=== PATIENT | female | born 1965 | race Caucasian/White ===

== ENCOUNTER 2021-01-22 16:17 | Inpatient (IN) | payer BC ==
[2021-01-22] MEDS ORDERED: PIPERACILLIN/TAZOB 4.5 GM 4.5 GM in DEXTROSE 5%-WATER 100 ML IVPB ONE (17:50)
[2021-01-22] MEDS ORDERED: VANCOMYCIN 1 GM in D5W (PRE-DOCKED) 1,000 MG/250 ML IVPB ONE (17:51)
[2021-01-22] MEDS ORDERED: VANCOMYCIN 1 GRAM (PRE-DOCKED) 1,000 MG/250 ML BAG IVPB ONE (18:32)
[2021-01-22] MEDS ORDERED: PIPERACILLIN/TAZOB 4.5 GM 4.5 GM/100 ML BAG IVPB ONE (18:32)
[2021-01-22 19:18] LABS: BASO % 1.5 % (0-2.0); EOS % 4.6 % (0-4.5); HEMATOCRIT 37.9 % (32.4-45.2); HEMOGLOBIN 12.8 GM/dL (10.7-15.3); LYMPH % 24.5 % (8-40); MCH 28.8 pg (25.7-33.7); MCHC 33.9 g/dl (32.0-36.0); MEAN CELL VOLUME 85.1 fl (80-96); MEAN PLT VOLUME 7.3 fl (7.5-11.1); MONO % 10.7 % (3.8-10.2); NEUT % 58.7 % (42.8-82.8); PLATELET COUNT 323 10^3/uL (134-434); RBC 4.45 M/mm3 (3.60-5.2); RDW 13.9 % (11.6-15.6); WHITE BLOOD COUNT 6.8 K/mm3 (4.0-10.0)
[2021-01-22 19:35] LABS: CHLORIDE 105 mmol/L (98-107); SODIUM 139 mmol/L (136-145)
[2021-01-22 19:37] LABS: CALCIUM 9.3 mg/dL (8.5-10.1)
[2021-01-22 19:38] LABS: ALBUMIN 4.1 g/dl (3.4-5.0); ANION GAP 8 MMOL/L (8-16); BLOOD UREA NITROGEN 15.2 mg/dL (7-18); CO2 27 mmol/L (21-32); GLUCOSE,RANDOM 69 mg/dL (74-106)
[2021-01-22 19:41] LABS: SGOT/AST 30 U/L (15-37); SGPT/ALT 62 U/L (13-61)
[2021-01-22 19:42] LABS: BILIRUBIN,TOTAL 0.3 mg/dL (0.2-1); TOT PROT 7.7 g/dl (6.4-8.2)
[2021-01-22 19:44] LABS: ALK PHOS 168 U/L (45-117)
[2021-01-22] MEDS ORDERED: ACETAMINOPHEN 1000 MG/100 ML VIAL (NON FORMULARY) IVPB ONE (21:41)
[2021-01-22] MEDS ORDERED: ACETAMINOPHEN INJECTION 100 ML IVPB ONE (22:25)
[2021-01-22] MEDS ORDERED: diphenhydrAMINE HCL 25 MG CAPSULE (FP) PO ONE ×2 (23:40→23:58)
[2021-01-23] MEDS ORDERED: ACETAMINOPHEN 1000 MG/100 ML VIAL (NON FORMULARY) IVPB PRN (00:10)
[2021-01-23] MEDS ORDERED: CYCLOBENZAPRINE HCL 5 MG TABLET PO PRN (00:11)
[2021-01-23] MEDS ORDERED: MORPHINE SULFATE 2 MG/ML VIAL ONE (01:26)
[2021-01-23] MEDS: MORPHINE SULFATE 2 MG/ML VIAL IVPUSH PRN ×2 (01:36→09:58)
[2021-01-23] MEDS ORDERED: PIPERACILLIN/TAZOBACTAM 3.375 GM VIAL IVPB ONE ×3 (02:02→17:27)
[2021-01-23] MEDS ORDERED: DEXTROSE 5%-WATER - 50 ML IVPB ONE ×3 (02:02→17:28)
[2021-01-23] MEDS: CLINDAMYCIN 600MG PREMIX IVPB 600 MG/50 ML BAG IVPB SCH ×3 (02:09→17:51)
[2021-01-23] MEDS: PIPERACILLIN/TAZOB 3.375 GM 3.375 GM in DEXTROSE 5%-WATER - 50 ML IVPB SCH ×3 (02:15→17:52)
[2021-01-23 02:47] VITALS: BMI 20.5
[2021-01-23] MEDS: QUEtiapine FUMARATE 50 MG TABLET PO SCH (03:39)
[2021-01-23 08:52] LABS: EOS % 7.2 % (0-4.5); HEMOGLOBIN 11.7 GM/dL (10.7-15.3); LYMPH % 23.4 % (8-40); MCH 29.5 pg (25.7-33.7); MCHC 34.4 g/dl (32.0-36.0); MEAN CELL VOLUME 85.8 fl (80-96); MEAN PLT VOLUME 7.3 fl (7.5-11.1); NEUT % 57.4 % (42.8-82.8); PLATELET COUNT 290 10^3/uL (134-434); PROTHROMBIN TIME (PATIENT) 12.3 SEC (9.7-13.0); RBC 3.96 M/mm3 (3.60-5.2); RDW 13.9 % (11.6-15.6); WHITE BLOOD COUNT 6.1 K/mm3 (4.0-10.0)
[2021-01-23 09:16] LABS: ALBUMIN 3.4 g/dl (3.4-5.0); BLOOD UREA NITROGEN 18.8 mg/dL (7-18); CALCIUM 8.9 mg/dL (8.5-10.1)
[2021-01-23 09:17] LABS: MAGNESIUM 2.2 mg/dL (1.8-2.4)
[2021-01-23 09:19] LABS: BILIRUBIN,TOTAL 0.4 mg/dL (0.2-1); TOT PROT 6.6 g/dl (6.4-8.2)
[2021-01-23 09:20] LABS: CREATININE 1.2 mg/dL (0.55-1.3); PHOSPHOROUS 4.5 mg/dL (2.5-4.9)
[2021-01-23] MEDS: DEXTROSE 5%-0.45% SALINE 1,000 ML IV SCH (10:12)
[2021-01-23] MEDS ORDERED: PT OWN MED DRAWER 7, Y5N ONE ×2 (10:32→18:59)
[2021-01-23] MEDS ORDERED: GABAPENTIN 300 MG CAPSULE PO SCH (13:15)
[2021-01-23] MEDS ORDERED: ELETRIPTAN HYDROBROMIDE 40 MG TABLET PO PRN (13:15)
[2021-01-23] MEDS ORDERED: ZOLPIDEM TARTRATE 5 MG TABLET PO PRN (14:11)
[2021-01-23] MEDS: VENLAFAXINE HCL 75 MG E.R. CAPSULES PO SCH (14:32)
[2021-01-23] MEDS ORDERED: THROMBIN (BOVINE) 20,000 UNIT VIAL TP ONE (16:24)
[2021-01-23] MEDS ORDERED: VANCOMYCIN 1,000 MG VIAL (RESTRICTED TO ID ONLY) ONE (16:24)
[2021-01-23] MEDS ORDERED: GENTAMICIN SO4 80 MG/2 ML VIAL ONE ×2 (16:24→19:42)
[2021-01-23 17:45] LABS: EPI CELLS 5 /uL (0-25.1); HYALINE CASTS 1 /uL (0-3.1); PH,URINE 6.5 (5.0-8.0); URINE APPEARANCE CLEAR; URINE BACTERIA 1 /uL (0-1359); URINE BILIRUBIN NEGATIVE (NEGATIVE); URINE COLOR YELLOW; URINE GLUCOSE (UA) NEGATIVE (NEGATIVE); URINE KETONE NEGATIVE (NEGATIVE); URINE LEUK ESTERASE TRACE (NEGATIVE); URINE NITRITE NEGATIVE (NEGATIVE); URINE PROTEIN NEGATIVE (NEGATIVE); URINE RBC 3 /uL (0-23.9); URINE UROBILINOGEN 0.2 mg/dL (0.2-1.0); URINE WBC 3 /uL (0-25.8)
[2021-01-23] MEDS ORDERED: MIDAZOLAM HCL 2 MG/2 ML SINGLE DOSE VIAL ONE ×2 (19:06)
[2021-01-23] MEDS ORDERED: PROPOFOL 20 ML ONE ×2 (19:06)
[2021-01-23] MEDS ORDERED: HYDROmorphone HCl 2 MG/ML VIAL ONE (19:06)
[2021-01-23] MEDS ORDERED: ROCURONIUM BROMIDE 50 MG/5 ML SYRINGE ONE ×2 (19:07)
[2021-01-23] MEDS ORDERED: diphenhydrAMINE HCL 25 MG CAPSULE (FP) PO PRN (19:34)
[2021-01-23] MEDS ORDERED: SUCCINYLCHOLINE CHLORIDE 200 MG/10 ML SYRINGE ONE (19:34)
[2021-01-23] MEDS ORDERED: ONDANSETRON 4 MG/2 ML VIAL IVPUSH PRN (19:34)
[2021-01-23] MEDS ORDERED: HEPARIN NA (PORCINE) 5,000 UNITS/ML 1ML VIAL SQ SCH (19:45)
[2021-01-23] MEDS ORDERED: ceFAZolin SODIUM 1 GM VIAL IVPB ONE (19:45)
[2021-01-23] MEDS ORDERED: LACTATED RINGERS SOLUTION 1,000 ML/1,000 ML INFUS.BAG IV SCH (19:45)
[2021-01-23] MEDS ORDERED: LIDOCAINE 1%/EPI 1:100000 (20 ML MULTI DOSE VIAL) IJ ONE (20:09)
[2021-01-23] MEDS ORDERED: BACITRACIN 50,000 UNITS VIAL TP ONE (20:20)
[2021-01-23] MEDS ORDERED: GENTAMICIN SO4 80 MG/2 ML VIAL IVPB ONE (20:20)
[2021-01-23] MEDS ORDERED: NEOSTIGMINE METHYLSULFATE 0.5 MG/1 ML - 10 ML MDV ONE (20:55)
[2021-01-23] MEDS ORDERED: LACTATED RINGERS SOLUTION 1,000 ML IV SCH (21:30)
[2021-01-23] MEDS ORDERED: PATIENT'S OWN MEDICATION (NON-FORMULARY) (Eszopiclone [Lunesta] 3 MG Tablet) PO SCH (22:00)
[2021-01-23] MEDS: morphine SULFATE 4 MG/ML VIAL IVPUSH PRN (23:04)
[2021-01-24] MEDS: HEPARIN NA (PORCINE) 5,000 UNITS/ML 1ML VIAL SQ SCH ×4 (00:19→21:30)
[2021-01-24] MEDS: GABAPENTIN 300 MG CAPSULE PO SCH (00:19)
[2021-01-24] MEDS: DOCUSATE SODIUM 100 MG CAPSULE (FP) PO SCH ×4 (00:19→21:30)
[2021-01-24] MEDS: QUEtiapine FUMARATE 50 MG TABLET PO SCH ×2 (00:20→21:30)
[2021-01-24] MEDS: CLINDAMYCIN 600MG PREMIX IVPB 600 MG/50 ML BAG IVPB SCH ×3 (01:54→18:24)
[2021-01-24] MEDS ORDERED: CEFAZOLIN 1 GM/D5W 1 GM/50 ML BAG IVPB SCH (02:00)
[2021-01-24] MEDS ORDERED: PIPERACILLIN/TAZOBACTAM 3.375 GM VIAL IVPB ONE ×3 (02:15→16:55)
[2021-01-24] MEDS ORDERED: DEXTROSE 5%-WATER - 50 ML IVPB ONE ×3 (02:15→16:55)
[2021-01-24] MEDS ORDERED: ACETAMINOPHEN 1000 MG/100 ML VIAL (NON FORMULARY) IVPB ONE (02:26)
[2021-01-24] MEDS: PIPERACILLIN/TAZOB 3.375 GM 3.375 GM in DEXTROSE 5%-WATER - 50 ML IVPB SCH ×3 (02:36→17:47)
[2021-01-24 08:14] LABS: HEMOGLOBIN 11.1 GM/dL (10.7-15.3); MCH 29.7 pg (25.7-33.7); MCHC 34.8 g/dl (32.0-36.0); MEAN CELL VOLUME 85.3 fl (80-96); MEAN PLT VOLUME 7.5 fl (7.5-11.1); PLATELET COUNT 275 10^3/uL (134-434); RBC 3.76 M/mm3 (3.60-5.2); RDW 13.9 % (11.6-15.6); WHITE BLOOD COUNT 6.6 K/mm3 (4.0-10.0)
[2021-01-24 08:27] LABS: BLOOD UREA NITROGEN 13.4 mg/dL (7-18); CALCIUM 8.9 mg/dL (8.5-10.1)
[2021-01-24] MEDS: DEXTROSE 5%-0.45% SALINE 1,000 ML IV SCH (08:30)
[2021-01-24] MEDS ORDERED: PT OWN MED DRAWER 7, Y5N ONE (09:39)
[2021-01-24] MEDS: FOLIC ACID 1 MG TABLET (FP) PO SCH (09:43)
[2021-01-24] MEDS: VENLAFAXINE HCL 75 MG E.R. CAPSULES PO SCH (09:43)
[2021-01-24] MEDS: morphine SULFATE 4 MG/ML VIAL IVPUSH PRN ×4 (09:43→22:57)
[2021-01-24] MEDS: FERROUS SO4 325 MG TABLET (FP) PO SCH (09:43)
[2021-01-25] MEDS: GABAPENTIN 300 MG CAPSULE PO SCH (00:09)
[2021-01-25] MEDS: CLINDAMYCIN 600MG PREMIX IVPB 600 MG/50 ML BAG IVPB SCH ×3 (02:10→18:03)
[2021-01-25] MEDS ORDERED: PIPERACILLIN/TAZOBACTAM 3.375 GM VIAL IVPB ONE ×4 (02:52→17:02)
[2021-01-25] MEDS ORDERED: DEXTROSE 5%-WATER - 50 ML IVPB ONE ×4 (02:52→17:02)
[2021-01-25] MEDS: PIPERACILLIN/TAZOB 3.375 GM 3.375 GM in DEXTROSE 5%-WATER - 50 ML IVPB SCH ×3 (03:00→18:03)
[2021-01-25] MEDS: morphine SULFATE 4 MG/ML VIAL IVPUSH PRN ×2 (03:10→15:55)
[2021-01-25] MEDS: HEPARIN NA (PORCINE) 5,000 UNITS/ML 1ML VIAL SQ SCH ×2 (06:30→14:57)
[2021-01-25] MEDS: DOCUSATE SODIUM 100 MG CAPSULE (FP) PO SCH ×2 (06:30→15:56)
[2021-01-25 08:18] LABS: HEMATOCRIT 29.2 % (32.4-45.2); HEMOGLOBIN 10.2 GM/dL (10.7-15.3); MCH 29.8 pg (25.7-33.7); MCHC 34.9 g/dl (32.0-36.0); MEAN CELL VOLUME 85.3 fl (80-96); MEAN PLT VOLUME 7.9 fl (7.5-11.1); PLATELET COUNT 251 10^3/uL (134-434); RBC 3.43 M/mm3 (3.60-5.2); RDW 13.7 % (11.6-15.6); WHITE BLOOD COUNT 6.4 K/mm3 (4.0-10.0)
[2021-01-25 08:33] LABS: CALCIUM 8.6 mg/dL (8.5-10.1)
[2021-01-25 08:34] LABS: BLOOD UREA NITROGEN 12.2 mg/dL (7-18); MAGNESIUM 2.4 mg/dL (1.8-2.4)
[2021-01-25] MEDS: FERROUS SO4 325 MG TABLET (FP) PO SCH (08:36)
[2021-01-25 08:37] LABS: PHOSPHOROUS 3.2 mg/dL (2.5-4.9)
[2021-01-25] MEDS: VENLAFAXINE HCL 75 MG E.R. CAPSULES PO SCH (10:18)
[2021-01-25] MEDS: FOLIC ACID 1 MG TABLET (FP) PO SCH (10:18)
[2021-01-25] MEDS ORDERED: ACETAMINOPHEN 1000 MG/100 ML VIAL (NON FORMULARY) IVPB PRN (13:40)
[2021-01-25 17:54] VITALS: BP 98/64; PULSE 63; TEMP 98.3
== END 2021-01-25 19:28 | disposition home or self-care (01) | DRG 857 ==
LOC: JER 16:17 → JERBED 18:26 → J8W 01-23 01:45
PROVIDERS: ADMIT Internal Medicine; ATTEND Internal Medicine
PROC: 0JX70ZZ Transfer Back Subcutaneous Tissue and Fascia, Open Approach (ICD-10-PCS; 2021-01-23)
PROC: 3E10X8Z Irrigation of Skin and Mucous Membranes using Irrigating Substance (ICD-10-PCS; 2021-01-23)
PROC: 0HB6XZZ Excision of Back Skin, External Approach (ICD-10-PCS; 2021-01-23)
PROC: 0J970ZX Drainage of Back Subcutaneous Tissue and Fascia, Open Approach, Diagnostic (ICD-10-PCS; principal; 2021-01-23 19:00)
PROC: 02HV33Z Insertion of Infusion Device into Superior Vena Cava, Percutaneous Approach (ICD-10-PCS; 2021-01-25)
PROC: B518ZZA Fluoroscopy of Superior Vena Cava, Guidance (ICD-10-PCS; 2021-01-25)
DX: T81.42XA Infection following a procedure, deep incisional surgical site, initial encounter (principal); T81.32XA Disruption of internal operation (surgical) wound, not elsewhere classified, initial encounter; M79.7 Fibromyalgia; F32.9 Major depressive disorder, single episode, unspecified; M41.9 Scoliosis, unspecified; G47.00 Insomnia, unspecified; G62.9 Polyneuropathy, unspecified; B96.5 Pseudomonas (aeruginosa) (mallei) (pseudomallei) as the cause of diseases classified elsewhere; Y83.8 Other surgical procedures as the cause of abnormal reaction of the patient, or of later complication, without mention of misadventure at the time of the procedure
CPT/HCPCS: 36415; 36569; 72126-TC; 72129-TC; 80048; 80053; 81003; 83735; 84100; 85025; 85027; 85610; 85651; 86140; 87040; 87070; 87075; 87186; 87205; 93005; 93010; 94760; 97116-GP; 97161-GP; 99285-25; C9803; J0131; J1644; Q9967; U0003; U0005

== ENCOUNTER 2021-01-31 18:59 | Inpatient (IN) | payer BC ==
[2021-01-31 22:05] LABS: HEMOGLOBIN 12.9 GM/dL (10.7-15.3); MCH 29.2 pg (25.7-33.7); MEAN PLT VOLUME 7.5 fl (7.5-11.1); PLATELET COUNT 342 10^3/uL (134-434); RBC 4.41 M/mm3 (3.60-5.2); RDW 14.2 % (11.6-15.6); WHITE BLOOD COUNT 6.5 K/mm3 (4.0-10.0)
[2021-01-31 22:15] LABS: INR 0.98 (0.83-1.09); PROTHROMBIN TIME (PATIENT) 11.9 SEC (9.7-13.0)
[2021-01-31 22:19] LABS: CHLORIDE 105 mmol/L (98-107); SODIUM 138 mmol/L (136-145)
[2021-01-31 22:20] LABS: CALCIUM 9.5 mg/dL (8.5-10.1)
[2021-01-31 22:21] LABS: ANION GAP 8 MMOL/L (8-16); BLOOD UREA NITROGEN 14.6 mg/dL (7-18); CO2 25 mmol/L (21-32); GLUCOSE,RANDOM 77 mg/dL (74-106); MAGNESIUM 2.5 mg/dL (1.8-2.4)
[2021-01-31 22:25] LABS: CREATININE 0.9 mg/dL (0.55-1.3); PHOSPHOROUS 4.3 mg/dL (2.5-4.9); SGOT/AST 39 U/L (15-37); SGPT/ALT 39 U/L (13-61)
[2021-01-31 22:26] LABS: BILIRUBIN,TOTAL 0.5 mg/dL (0.2-1); TOT PROT 8.1 g/dl (6.4-8.2)
[2021-01-31 22:27] LABS: ALK PHOS 127 U/L (45-117)
[2021-02-01] MEDS ORDERED: PIPERACILLIN/TAZOB 3.375 GM 3.375 GM in DEXTROSE 5%-WATER - 50 ML IVPB ONE (00:13)
[2021-02-01] MEDS ORDERED: CLINDAMYCIN 600MG PREMIX IVPB 600 MG/50 ML BAG IVPB ONE ×2 (00:14→00:29)
[2021-02-01] MEDS ORDERED: PIPERACILLIN/TAZOB 3.375 GM 3.375 GM/50 ML BAG IVPB ONE ×2 (00:29→09:32)
[2021-02-01] MEDS ORDERED: SODIUM CHLORIDE 1,000 ML IV SCH (06:15)
[2021-02-01] MEDS ORDERED: LINEZOLID 600 MG PREMIX BAG 600 MG/300 ML BAG IVPB SCH ×2 (08:00→12:45)
[2021-02-01 08:39] LABS: HEMATOCRIT 35.4 % (32.4-45.2); HEMOGLOBIN 12.4 GM/dL (10.7-15.3); MCH 29.3 pg (25.7-33.7); MEAN CELL VOLUME 83.7 fl (80-96); PLATELET COUNT 303 10^3/uL (134-434); RBC 4.22 M/mm3 (3.60-5.2); RDW 13.6 % (11.6-15.6); WHITE BLOOD COUNT 6.3 K/mm3 (4.0-10.0)
[2021-02-01 09:05] LABS: ALBUMIN 3.7 g/dl (3.4-5.0); BLOOD UREA NITROGEN 15.2 mg/dL (7-18); CALCIUM 9.3 mg/dL (8.5-10.1); MAGNESIUM 2.5 mg/dL (1.8-2.4)
[2021-02-01 09:07] LABS: CREATININE 0.9 mg/dL (0.55-1.3)
[2021-02-01 09:08] LABS: PHOSPHOROUS 4.5 mg/dL (2.5-4.9)
[2021-02-01 09:09] LABS: BILIRUBIN,TOTAL 0.7 mg/dL (0.2-1); TOT PROT 7.3 g/dl (6.4-8.2)
[2021-02-01 10:05] LABS: PH,URINE 6.5 (5.0-8.0); URINE APPEARANCE Clear; URINE BILIRUBIN Negative (NEGATIVE); URINE COLOR Yellow; URINE GLUCOSE (UA) Negative (NEGATIVE); URINE KETONE Negative (NEGATIVE); URINE LEUK ESTERASE Negative (NEGATIVE); URINE NITRITE Negative (NEGATIVE); URINE PROTEIN Negative (NEGATIVE); URINE UROBILINOGEN 0.2 mg/dL (0.2-1.0)
[2021-02-01] MEDS: PIPERACILLIN/TAZOB 3.375 GM 3.375 GM/50 ML BAG IVPB SCH ×2 (12:04→17:36)
[2021-02-01] MEDS ORDERED: ENOXAPARIN NA (PORCINE) 40 MG/0.4 ML DISP.SYRIN SQ ONE (13:03)
[2021-02-01] MEDS: ENOXAPARIN NA (PORCINE) 40 MG/0.4 ML DISP.SYRIN SQ SCH (13:07)
[2021-02-01] MEDS: PIPERACILLIN/TAZOB 3.375 GM 3.375 GM in DEXTROSE 5%-WATER - 50 ML IVPB SCH (17:35)
[2021-02-01] MEDS ORDERED: DEXTROSE 5%-WATER 100 ML IVPB ONE (17:39)
[2021-02-01] MEDS ORDERED: MEROPENEM 1 GM VIAL (RESTRICTED TO ID) IVPB ONE (17:39)
[2021-02-01] MEDS: MEROPENEM 1 GM in DEXTROSE 5%-WATER 100 ML IVPB SCH (18:07)
[2021-02-01] MEDS: clonazePAM 0.5 MG TABLET PO PRN (20:23)
[2021-02-02] MEDS: MEROPENEM 1 GM in DEXTROSE 5%-WATER 100 ML IVPB SCH ×3 (01:51→18:23)
[2021-02-02] MEDS ORDERED: ACETAMINOPHEN 325 MG TABLET (FP) PO ONE (05:16)
[2021-02-02] MEDS ORDERED: ACETAMINOPHEN/CAFFEINE/BUTALBITAL 1 TAB PO ONE (05:37)
[2021-02-02] MEDS ORDERED: MORPHINE SULFATE 2 MG/ML VIAL IVPUSH ONE (06:43)
[2021-02-02 10:05] LABS: BASO % 1.5 % (0-2.0); EOS % 11.7 % (0-4.5); HEMATOCRIT 34.3 % (32.4-45.2); HEMOGLOBIN 11.8 GM/dL (10.7-15.3); LYMPH % 16.7 % (8-40); MCHC 34.4 g/dl (32.0-36.0); MEAN CELL VOLUME 84.2 fl (80-96); MEAN PLT VOLUME 7.3 fl (7.5-11.1); NEUT % 57.1 % (42.8-82.8); PLATELET COUNT 288 10^3/uL (134-434); RBC 4.07 M/mm3 (3.60-5.2); RDW 13.7 % (11.6-15.6); WHITE BLOOD COUNT 5.5 K/mm3 (4.0-10.0)
[2021-02-02 10:12] LABS: ALBUMIN 3.3 g/dl (3.4-5.0)
[2021-02-02 10:15] LABS: BILIRUBIN,TOTAL 1.9 mg/dL (0.2-1)
[2021-02-02 10:16] LABS: TOT PROT 7.4 g/dl (6.4-8.2)
[2021-02-02] MEDS ORDERED: MEROPENEM 1 GM VIAL (RESTRICTED TO ID) IVPB ONE ×2 (10:49→18:11)
[2021-02-02] MEDS ORDERED: DEXTROSE 5%-WATER 100 ML IVPB ONE ×2 (10:50→18:11)
[2021-02-02] MEDS: ENOXAPARIN NA (PORCINE) 40 MG/0.4 ML DISP.SYRIN SQ SCH (10:57)
[2021-02-02] MEDS ORDERED: ACETAMINOPHEN/CAFFEINE/BUTALBITAL 1 TAB PO PRN (12:27)
[2021-02-02 12:33] LABS: CALCIUM 8.8 mg/dL (8.5-10.1)
[2021-02-02 12:43] LABS: BLOOD UREA NITROGEN 12.9 mg/dL (7-18)
[2021-02-02] MEDS: ACETAMINOPHEN/CAFFEINE/BUTALBITAL 1 TAB PO PRN ×2 (12:51→20:50)
[2021-02-02] MEDS ORDERED: ACETAMINOPHEN 1000 MG/100 ML VIAL IVPB ONE (17:41)
[2021-02-02] MEDS: clonazePAM 0.5 MG TABLET PO PRN (20:52)
[2021-02-03] MEDS: MEROPENEM 1 GM in DEXTROSE 5%-WATER 100 ML IVPB SCH ×3 (01:53→18:06)
[2021-02-03] MEDS ORDERED: MEROPENEM 1 GM VIAL (RESTRICTED TO ID) IVPB ONE ×2 (08:47→18:00)
[2021-02-03] MEDS ORDERED: DEXTROSE 5%-WATER 100 ML IVPB ONE ×2 (08:47→18:00)
[2021-02-03] MEDS: ACETAMINOPHEN/CAFFEINE/BUTALBITAL 1 TAB PO PRN (08:55)
[2021-02-03] MEDS: ENOXAPARIN NA (PORCINE) 40 MG/0.4 ML DISP.SYRIN SQ SCH (09:01)
[2021-02-03 09:26] LABS: BASO % 2.1 % (0-2.0); EOS % 13.8 % (0-4.5); HEMATOCRIT 34.4 % (32.4-45.2); LYMPH % 21.8 % (8-40); MCH 29.2 pg (25.7-33.7); MCHC 34.9 g/dl (32.0-36.0); MEAN CELL VOLUME 83.9 fl (80-96); MEAN PLT VOLUME 7.5 fl (7.5-11.1); MONO % 12.2 % (3.8-10.2); NEUT % 50.1 % (42.8-82.8); PLATELET COUNT 282 10^3/uL (134-434); RDW 13.7 % (11.6-15.6); WHITE BLOOD COUNT 5.8 K/mm3 (4.0-10.0)
[2021-02-03 09:43] LABS: CALCIUM 9.2 mg/dL (8.5-10.1)
[2021-02-03 09:44] LABS: ALBUMIN 3.6 g/dl (3.4-5.0)
[2021-02-03 09:47] LABS: BILIRUBIN,TOTAL 0.5 mg/dL (0.2-1); TOT PROT 7.1 g/dl (6.4-8.2)
[2021-02-03] MEDS: MORPHINE SULFATE 2 MG/ML VIAL IVPUSH PRN ×2 (18:04→22:25)
[2021-02-04] MEDS ORDERED: MEROPENEM 1 GM VIAL (RESTRICTED TO ID) IVPB ONE ×3 (01:32→19:24)
[2021-02-04] MEDS ORDERED: DEXTROSE 5%-WATER 100 ML IVPB ONE ×3 (01:33→19:24)
[2021-02-04] MEDS: MEROPENEM 1 GM in DEXTROSE 5%-WATER 100 ML IVPB SCH ×3 (01:41→19:41)
[2021-02-04] MEDS: MORPHINE SULFATE 2 MG/ML VIAL IVPUSH PRN ×2 (02:18→06:15)
[2021-02-04] MEDS: ENOXAPARIN NA (PORCINE) 40 MG/0.4 ML DISP.SYRIN SQ SCH (09:40)
[2021-02-04 12:56] VITALS: BMI 20.1
[2021-02-04] MEDS: ATORVASTATIN CA 40 MG TABLET (FP) PO SCH ×2 (21:02→21:07)
[2021-02-05] MEDS ORDERED: MEROPENEM 1 GM VIAL (RESTRICTED TO ID) IVPB ONE ×2 (01:29→09:14)
[2021-02-05] MEDS ORDERED: DEXTROSE 5%-WATER 100 ML IVPB ONE ×2 (01:29→09:14)
[2021-02-05] MEDS: MEROPENEM 1 GM in DEXTROSE 5%-WATER 100 ML IVPB SCH ×2 (02:47→09:26)
[2021-02-05] MEDS: ENOXAPARIN NA (PORCINE) 40 MG/0.4 ML DISP.SYRIN SQ SCH (09:26)
[2021-02-05 11:28] LABS: EOS % 16.5 % (0-4.5); HEMOGLOBIN 12.5 GM/dL (10.7-15.3); LYMPH % 16.1 % (8-40); MCH 29.1 pg (25.7-33.7); MCHC 34.6 g/dl (32.0-36.0); MEAN PLT VOLUME 7.2 fl (7.5-11.1); MONO % 9.9 % (3.8-10.2); NEUT % 56.5 % (42.8-82.8); PLATELET COUNT 277 10^3/uL (134-434); RBC 4.28 M/mm3 (3.60-5.2); RDW 13.6 % (11.6-15.6); WHITE BLOOD COUNT 4.8 K/mm3 (4.0-10.0)
[2021-02-05 12:02] LABS: ALBUMIN 3.7 g/dl (3.4-5.0); BILIRUBIN,TOTAL 0.3 mg/dL (0.2-1); TOT PROT 7.4 g/dl (6.4-8.2)
[2021-02-05 12:07] LABS: CREATININE 0.8 mg/dL (0.55-1.3); PHOSPHOROUS 2.4 mg/dL (2.5-4.9)
[2021-02-05 12:12] LABS: CALCIUM 9.3 mg/dL (8.5-10.1)
[2021-02-05 12:13] LABS: MAGNESIUM 2.5 mg/dL (1.8-2.4)
[2021-02-05 13:33] VITALS: BP 108/70; PULSE 88; TEMP 98.8
== END 2021-02-05 14:58 | disposition home or self-care (01) | DRG 312 ==
LOC: JER 18:59 → JERBED 02-01 00:40 → J5S 02-01 16:48
PROVIDERS: ADMIT Internal Medicine; ATTEND Internal Medicine
DX: I95.1 Orthostatic hypotension (principal); G06.1 Intraspinal abscess and granuloma; T81.40XA Infection following a procedure, unspecified, initial encounter; E86.0 Dehydration; M79.7 Fibromyalgia; F41.8 Other specified anxiety disorders; R51.9 Headache, unspecified; R19.7 Diarrhea, unspecified; E78.5 Hyperlipidemia, unspecified; Y83.8 Other surgical procedures as the cause of abnormal reaction of the patient, or of later complication, without mention of misadventure at the time of the procedure
CPT/HCPCS: 36415; 70450-TC; 71045-TC-FY; 72125-TC; 72126-TC; 80048; 80053; 80061; 81003; 82550; 83605; 83735; 84100; 84436; 84443; 84484; 85025; 85027; 85610; 87040; 87086; 87324; 87449; 93005; 93010; 93306-TC; 93880-TC; 99285-25; C9803; G0378; J0131; Q9967; U0003; U0005

== ENCOUNTER 2022-03-31 05:38 | Inpatient (IN) | payer BC ==
[2022-03-31 06:00] VITALS: BMI 25.9
[2022-03-31 06:33] LABS: EOS % 5.2 % (0-4.5); HEMATOCRIT 32.8 % (32.4-45.2); HEMOGLOBIN 10.9 GM/dL (10.7-15.3); MCH 28.1 pg (25.7-33.7); MCHC 33.4 g/dl (32.0-36.0); MEAN PLT VOLUME 6.4 fl (7.5-11.1); MONO % 13.5 % (3.8-10.2); NEUT % 56.3 % (42.8-82.8); PLATELET COUNT 511 10^3/uL (134-434); RDW 14.5 % (11.6-15.6); WHITE BLOOD COUNT 5.6 K/mm3 (4.0-10.0)
[2022-03-31 06:49] LABS: INR 1.04 (0.83-1.09)
[2022-03-31 06:52] LABS: ACTIVATED PTT 34.4 SECONDS (25.2-36.5)
[2022-03-31] MEDS ORDERED: morphine CARPU-JECT 2 MG/1 ML DISP.SYRIN IVPUSH ONE (06:54)
[2022-03-31 07:00] LABS: BLOOD UREA NITROGEN 11.8 mg/dL (7-18); CALCIUM 8.4 mg/dL (8.5-10.1)
[2022-03-31 07:03] LABS: CREATININE 0.7 mg/dL (0.55-1.3)
[2022-03-31 07:05] LABS: BILIRUBIN,TOTAL 0.3 mg/dL (0.2-1); TOT PROT 6.7 g/dl (6.4-8.2)
[2022-03-31] MEDS ORDERED: THROMBIN (BOVINE) 5,000 UNIT VIAL TP ONE ×2 (09:55→12:10)
[2022-03-31] MEDS ORDERED: GENTAMICIN SO4 80 MG/2 ML VIAL ONE (09:55)
[2022-03-31] MEDS ORDERED: BUPIVACAINE LIPOSOME/PF (EXPAREL) 266 MG/20 ML VIAL ONE (09:56)
[2022-03-31] MEDS ORDERED: BUPIVACAINE HCL/PF 0.5% (5MG/ML) 10 ML VIAL ONE (09:56)
[2022-03-31] MEDS ORDERED: PROPOFOL 20 ML ONE ×3 (10:20→14:38)
[2022-03-31] MEDS ORDERED: MIDAZOLAM HCL 2 MG/2 ML SINGLE DOSE VIAL ONE (10:20)
[2022-03-31] MEDS ORDERED: ROCURONIUM BROMIDE 50 MG/5 ML SYRINGE ONE ×2 (10:25→11:42)
[2022-03-31] MEDS ORDERED: ceFAZolin SODIUM 1 GM VIAL IVPB ONE (10:26)
[2022-03-31] MEDS ORDERED: KETAMINE HCL 500 MG/10 ML VIAL ONE (10:26)
[2022-03-31] MEDS ORDERED: VANCOMYCIN 1 GM in D5W (PRE-DOCKED) 1,000 MG/250 ML IVPB ONE ×2 (10:26→13:17)
[2022-03-31] MEDS ORDERED: ACETAMINOPHEN INJECTION 100 ML IVPB ONE (10:47)
[2022-03-31] MEDS ORDERED: TRANEXAMIC ACID 1000 MG/10 ML VIAL ONE (11:19)
[2022-03-31] MEDS ORDERED: BETAMET ACET/BETAMET NA PH 30 MG/5 ML VIAL ONE (11:19)
[2022-03-31] MEDS ORDERED: DEXAMETHASONE SOD PHOSPHATE 4 MG/1 ML VIAL ONE ×2 (11:27)
[2022-03-31] MEDS ORDERED: HYDROmorphone HCl 2 MG/ML VIAL ONE (11:36)
[2022-03-31] MEDS ORDERED: ONDANSETRON 4 MG/2 ML VIAL ONE (11:57)
[2022-03-31] MEDS ORDERED: HYDROGEN PEROXIDE 473 ML PO ONE (12:30)
[2022-03-31] MEDS ORDERED: GENTAMICIN SO4 80 MG/2 ML VIAL IVPB ONE (12:30)
[2022-03-31] MEDS ORDERED: GLYCOPYRROLATE 0.2 MG/1 ML VIAL ONE (14:51)
[2022-03-31] MEDS ORDERED: NEOSTIGMINE METHYLSULFATE 0.5 MG/ML - 10 ML MDV ONE (14:51)
[2022-03-31] MEDS ORDERED: ONDANSETRON 4 MG/2 ML VIAL IVPUSH PRN ×2 (15:33→15:56)
[2022-03-31] MEDS ORDERED: diphenhydrAMINE HCL 25 MG CAPSULE (FP) PO PRN (15:33)
[2022-03-31] MEDS ORDERED: HYDROmorphone *PCA* 10MG/50ML DISP.SYRIN ONE (16:43)
[2022-03-31] MEDS: LACTATED RINGERS SOLUTION 1,000 ML/1,000 ML INFUS.BAG IV SCH (16:50)
[2022-03-31] MEDS: HYDROmorphone *PCA* 10MG/50ML DISP.SYRIN PCA SCH (16:50)
[2022-03-31] MEDS: CEFAZOLIN 1 GM in DEXTROSE 5%-WATER - 50 ML IVPB SCH (20:41)
[2022-03-31] MEDS: ACETAMINOPHEN 1000 MG/100 ML BAG IVPB SCH (20:42)
[2022-03-31] MEDS: HEPARIN NA (PORCINE) 5,000 UNITS/ML 1ML VIAL SQ SCH (21:54)
[2022-03-31] MEDS: DOCUSATE SODIUM 100 MG CAPSULE (FP) PO SCH (21:55)
[2022-04-01] MEDS: ACETAMINOPHEN 1000 MG/100 ML BAG IVPB SCH ×3 (03:00→15:25)
[2022-04-01] MEDS: CEFAZOLIN 1 GM in DEXTROSE 5%-WATER - 50 ML IVPB SCH ×3 (04:16→17:44)
[2022-04-01] MEDS: DOCUSATE SODIUM 100 MG CAPSULE (FP) PO SCH ×3 (05:12→21:38)
[2022-04-01] MEDS: HEPARIN NA (PORCINE) 5,000 UNITS/ML 1ML VIAL SQ SCH ×3 (05:12→21:39)
[2022-04-01] MEDS ORDERED: diazePAM 5 MG TABLET PO PRN (08:05)
[2022-04-01 08:30] LABS: BASO % 0.7 % (0-2.0); EOS % 0.3 % (0-4.5); HEMATOCRIT 26.8 % (32.4-45.2); LYMPH % 14.1 % (8-40); MCH 28.9 pg (25.7-33.7); MCHC 33.8 g/dl (32.0-36.0); MEAN CELL VOLUME 85.6 fl (80-96); MONO % 14.4 % (3.8-10.2); NEUT % 70.5 % (42.8-82.8); PLATELET COUNT 434 10^3/uL (134-434); RBC 3.13 M/mm3 (3.60-5.2); RDW 14.7 % (11.6-15.6); WHITE BLOOD COUNT 7.5 K/mm3 (4.0-10.0)
[2022-04-01 08:58] LABS: CALCIUM 8.3 mg/dL (8.5-10.1)
[2022-04-01 08:59] LABS: BLOOD UREA NITROGEN 14.5 mg/dL (7-18)
[2022-04-01 09:02] LABS: ALBUMIN 2.8 g/dl (3.4-5.0); PHOSPHOROUS 3.4 mg/dL (2.5-4.9)
[2022-04-01 09:03] LABS: BILIRUBIN,TOTAL 0.3 mg/dL (0.2-1)
[2022-04-01 09:07] LABS: MAGNESIUM 2.2 mg/dL (1.8-2.4)
[2022-04-01 09:10] LABS: CREATININE 0.8 mg/dL (0.55-1.3)
[2022-04-01] MEDS: FOLIC ACID 1 MG TABLET (FP) PO SCH (10:43)
[2022-04-01] MEDS: FERROUS SO4 325 MG TABLET (FP) PO SCH (10:43)
[2022-04-01] MEDS ORDERED: ELETRIPTAN HYDROBROMIDE 40 MG TABLET PO PRN ×2 (12:10→13:59)
[2022-04-01] MEDS ORDERED: VENLAFAXINE HCL 150 MG E.R. CAPSULE PO SCH (12:15)
[2022-04-01] MEDS: VENLAFAXINE HCL 75 MG E.R. CAPSULES PO SCH (12:37)
[2022-04-01] MEDS: HYDROmorphone *PCA* 10MG/50ML DISP.SYRIN PCA SCH (12:43)
[2022-04-01] MEDS ORDERED: PATIENT'S OWN MEDICATION (NON-FORMULARY) (Clonazepam [Klonopin] 1 MG Tablet) PO SCH (14:00)
[2022-04-01] MEDS: PANTOPRAZOLE 40 MG TABLET PO SCH (15:25)
[2022-04-01] MEDS: GABAPENTIN 300 MG CAPSULE PO SCH ×2 (15:25→21:38)
[2022-04-01] MEDS: LACTATED RINGERS SOLUTION 1,000 ML/1,000 ML INFUS.BAG IV SCH (15:27)
[2022-04-01] MEDS ORDERED: PATIENT'S OWN MEDICATION (NON-FORMULARY) (Eszopiclone [Lunesta] 3 MG Tablet) PO SCH (22:00)
[2022-04-01] MEDS ORDERED: ACETAMINOPHEN 500 MG TABLET (FP) PO PRN (22:00)
[2022-04-02] MEDS: CEFAZOLIN 1 GM in DEXTROSE 5%-WATER - 50 ML IVPB SCH ×3 (01:17→17:50)
[2022-04-02] MEDS: DOCUSATE SODIUM 100 MG CAPSULE (FP) PO SCH ×3 (06:21→21:39)
[2022-04-02] MEDS: HEPARIN NA (PORCINE) 5,000 UNITS/ML 1ML VIAL SQ SCH ×3 (06:21→21:40)
[2022-04-02 08:24] LABS: BASO % 1.2 % (0-2.0); HEMATOCRIT 24.5 % (32.4-45.2); HEMOGLOBIN 8.2 GM/dL (10.7-15.3); LYMPH % 10.6 % (8-40); MCH 28.4 pg (25.7-33.7); MCHC 33.4 g/dl (32.0-36.0); MEAN CELL VOLUME 85.3 fl (80-96); MEAN PLT VOLUME 7.4 fl (7.5-11.1); MONO % 13.5 % (3.8-10.2); NEUT % 69.7 % (42.8-82.8); PLATELET COUNT 364 10^3/uL (134-434); RBC 2.88 M/mm3 (3.60-5.2); RDW 14.7 % (11.6-15.6); WHITE BLOOD COUNT 7.2 K/mm3 (4.0-10.0)
[2022-04-02 09:07] LABS: ALBUMIN 2.3 g/dl (3.4-5.0); BLOOD UREA NITROGEN 10.6 mg/dL (7-18); CALCIUM 8.1 mg/dL (8.5-10.1); CREATININE 0.6 mg/dL (0.55-1.3)
[2022-04-02 09:09] LABS: BILIRUBIN,TOTAL 0.2 mg/dL (0.2-1); TOT PROT 5.2 g/dl (6.4-8.2)
[2022-04-02 09:10] LABS: MAGNESIUM 1.9 mg/dL (1.8-2.4); PHOSPHOROUS 2.5 mg/dL (2.5-4.9)
[2022-04-02] MEDS: GABAPENTIN 300 MG CAPSULE PO SCH ×2 (10:16→21:40)
[2022-04-02] MEDS: PANTOPRAZOLE 40 MG TABLET PO SCH (10:16)
[2022-04-02] MEDS: VENLAFAXINE HCL 75 MG E.R. CAPSULES PO SCH (10:16)
[2022-04-02] MEDS: FOLIC ACID 1 MG TABLET (FP) PO SCH ×2 (10:16→10:30)
[2022-04-02] MEDS: FERROUS SO4 325 MG TABLET (FP) PO SCH ×2 (10:16→10:30)
[2022-04-02] MEDS ORDERED: SIMETHICONE 80 MG TAB.CHEW (FP) PO PRN (10:39)
[2022-04-02] MEDS: POLYETHYLENE GLYCOL (HEALTHYLAX) 3350 17 GM PACKET PO SCH (11:11)
[2022-04-02] MEDS: oxyCODONE HCL 5 MG TABLET PO PRN ×5 (11:11→21:41)
[2022-04-03] MEDS: CEFAZOLIN 1 GM in DEXTROSE 5%-WATER - 50 ML IVPB SCH ×2 (02:29→10:45)
[2022-04-03] MEDS: oxyCODONE HCL 5 MG TABLET PO PRN ×3 (04:42→23:02)
[2022-04-03] MEDS: DOCUSATE SODIUM 100 MG CAPSULE (FP) PO SCH ×3 (06:24→23:16)
[2022-04-03] MEDS: HEPARIN NA (PORCINE) 5,000 UNITS/ML 1ML VIAL SQ SCH ×3 (06:24→23:17)
[2022-04-03 08:08] LABS: BASO % 0.9 % (0-2.0); EOS % 5.8 % (0-4.5); HEMATOCRIT 27.4 % (32.4-45.2); HEMOGLOBIN 9.1 GM/dL (10.7-15.3); LYMPH % 13.8 % (8-40); MCH 28.4 pg (25.7-33.7); MCHC 33.3 g/dl (32.0-36.0); MEAN CELL VOLUME 85.3 fl (80-96); MEAN PLT VOLUME 7.5 fl (7.5-11.1); MONO % 12.1 % (3.8-10.2); NEUT % 67.4 % (42.8-82.8); PLATELET COUNT 414 10^3/uL (134-434); RBC 3.21 M/mm3 (3.60-5.2); RDW 14.6 % (11.6-15.6); WHITE BLOOD COUNT 6.1 K/mm3 (4.0-10.0)
[2022-04-03 08:41] LABS: ALBUMIN 2.4 g/dl (3.4-5.0); CALCIUM 8.3 mg/dL (8.5-10.1)
[2022-04-03 08:42] LABS: BLOOD UREA NITROGEN 6.7 mg/dL (7-18); MAGNESIUM 2.1 mg/dL (1.8-2.4)
[2022-04-03 08:44] LABS: CREATININE 0.6 mg/dL (0.55-1.3); PHOSPHOROUS 3.1 mg/dL (2.5-4.9)
[2022-04-03 08:45] LABS: BILIRUBIN,TOTAL 0.2 mg/dL (0.2-1); TOT PROT 5.8 g/dl (6.4-8.2)
[2022-04-03] MEDS: VENLAFAXINE HCL 75 MG E.R. CAPSULES PO SCH (10:43)
[2022-04-03] MEDS: FOLIC ACID 1 MG TABLET (FP) PO SCH (10:43)
[2022-04-03] MEDS: FERROUS SO4 325 MG TABLET (FP) PO SCH (10:43)
[2022-04-03] MEDS: GABAPENTIN 300 MG CAPSULE PO SCH ×2 (10:44→23:16)
[2022-04-03] MEDS: POLYETHYLENE GLYCOL (HEALTHYLAX) 3350 17 GM PACKET PO SCH (10:44)
[2022-04-03] MEDS: PANTOPRAZOLE 40 MG TABLET PO SCH (10:44)
[2022-04-03] MEDS ORDERED: GENTAMICIN SO4 80 MG/2 ML VIAL ONE (12:18)
[2022-04-03] MEDS ORDERED: THROMBIN (BOVINE) 5,000 UNIT VIAL TP ONE ×2 (12:19→13:51)
[2022-04-03] MEDS ORDERED: MIDAZOLAM HCL 2 MG/2 ML SINGLE DOSE VIAL ONE (12:33)
[2022-04-03] MEDS ORDERED: SUCCINYLCHOLINE CHLORIDE 200 MG/10 ML SYRINGE ONE (12:33)
[2022-04-03] MEDS ORDERED: PROPOFOL 40 ML ONE (12:33)
[2022-04-03] MEDS ORDERED: ROCURONIUM BROMIDE 50 MG/5 ML SYRINGE ONE (12:33)
[2022-04-03] MEDS ORDERED: VANCOMYCIN 1 GM in NS (PRE-DOCKED) 1,000 MG/250 ML IVPB ONE (13:30)
[2022-04-03] MEDS ORDERED: ceFAZolin SODIUM 1 GM VIAL IVPB ONE (13:33)
[2022-04-03] MEDS ORDERED: KETAMINE HCL 500 MG/10 ML VIAL ONE (13:34)
[2022-04-03] MEDS ORDERED: ONDANSETRON 4 MG/2 ML VIAL ONE (13:36)
[2022-04-03] MEDS ORDERED: ceFAZolin SODIUM 1 GM VIAL ONE ×2 (13:36)
[2022-04-03] MEDS ORDERED: BUPIVACAINE HCL/PF 0.5% (5MG/ML) 10 ML VIAL ONE (13:50)
[2022-04-03] MEDS ORDERED: GENTAMICIN SO4 80 MG/2 ML VIAL IVPB ONE (13:51)
[2022-04-03] MEDS ORDERED: HYDROGEN PEROXIDE 473 ML PO ONE (13:54)
[2022-04-03] MEDS ORDERED: BUPIVACAINE HCL/PF 0.5% (5MG/ML) 10 ML VIAL IJ ONE ×2 (13:55→14:30)
[2022-04-03] MEDS ORDERED: BUPIVACAINE LIPOSOME/PF (EXPAREL) 266 MG/20 ML VIAL NR ONE ×2 (13:55→14:30)
[2022-04-03] MEDS ORDERED: NEOSTIGMINE METHYLSULFATE 0.5 MG/ML - 10 ML MDV ONE (14:06)
[2022-04-03] MEDS ORDERED: ONDANSETRON 4 MG/2 ML VIAL IVPUSH PRN (15:33)
[2022-04-03] MEDS ORDERED: LACTATED RINGERS SOLUTION 1,000 ML IV SCH (15:45)
[2022-04-03] MEDS ORDERED: SIMETHICONE 80 MG TAB.CHEW (FP) PO PRN (15:56)
[2022-04-03] MEDS ORDERED: oxyCODONE HCL 5 MG TABLET PO PRN (15:56)
[2022-04-03] MEDS ORDERED: diazePAM 5 MG TABLET PO PRN (15:56)
[2022-04-03] MEDS ORDERED: diphenhydrAMINE HCL 25 MG CAPSULE (FP) PO PRN (15:56)
[2022-04-03] MEDS ORDERED: FENTANYL CITRATE/PF 50 MCG/ML VIAL ONE (16:05)
[2022-04-03] MEDS: ELETRIPTAN HYDROBROMIDE 40 MG TABLET PO PRN (18:11)
[2022-04-03] MEDS: ACETAMINOPHEN 500 MG TABLET (FP) PO PRN (21:19)
[2022-04-04] MEDS: HYDROmorphone *PCA* 10MG/50ML DISP.SYRIN PCA SCH (02:32)
[2022-04-04] MEDS: CEFAZOLIN 1 GM in DEXTROSE 5%-WATER - 50 ML IVPB SCH ×3 (02:45→17:38)
[2022-04-04] MEDS: DOCUSATE SODIUM 100 MG CAPSULE (FP) PO SCH ×2 (06:41→21:25)
[2022-04-04] MEDS: HEPARIN NA (PORCINE) 5,000 UNITS/ML 1ML VIAL SQ SCH ×3 (06:42→21:24)
[2022-04-04 08:54] LABS: BASO % 0.8 % (0-2.0); EOS % 0.2 % (0-4.5); HEMATOCRIT 24.8 % (32.4-45.2); HEMOGLOBIN 8.4 GM/dL (10.7-15.3); LYMPH % 14.5 % (8-40); MCHC 33.6 g/dl (32.0-36.0); MEAN CELL VOLUME 86.3 fl (80-96); MEAN PLT VOLUME 7.6 fl (7.5-11.1); MONO % 12.4 % (3.8-10.2); NEUT % 72.1 % (42.8-82.8); PLATELET COUNT 403 10^3/uL (134-434); RBC 2.88 M/mm3 (3.60-5.2); RDW 14.8 % (11.6-15.6); WHITE BLOOD COUNT 6.6 K/mm3 (4.0-10.0)
[2022-04-04] MEDS: PANTOPRAZOLE 40 MG TABLET PO SCH (09:36)
[2022-04-04] MEDS: FOLIC ACID 1 MG TABLET (FP) PO SCH (09:36)
[2022-04-04] MEDS: FERROUS SO4 325 MG TABLET (FP) PO SCH (09:36)
[2022-04-04] MEDS: GABAPENTIN 300 MG CAPSULE PO SCH ×2 (09:36→21:25)
[2022-04-04] MEDS: VENLAFAXINE HCL 75 MG E.R. CAPSULES PO SCH (09:37)
[2022-04-04] MEDS ORDERED: POLYETHYLENE GLYCOL (HEALTHYLAX) 3350 17 GM PACKET PO SCH (10:00)
[2022-04-04] MEDS: ELETRIPTAN HYDROBROMIDE 40 MG TABLET PO PRN (10:14)
[2022-04-04 10:50] LABS: BLOOD UREA NITROGEN 9.4 mg/dL (7-18); CALCIUM 8.3 mg/dL (8.5-10.1); MAGNESIUM 2.3 mg/dL (1.8-2.4)
[2022-04-04 10:51] LABS: ALBUMIN 2.3 g/dl (3.4-5.0)
[2022-04-04 10:54] LABS: CREATININE 0.6 mg/dL (0.55-1.3); PHOSPHOROUS 3.4 mg/dL (2.5-4.9)
[2022-04-04 10:55] LABS: BILIRUBIN,TOTAL 0.3 mg/dL (0.2-1); TOT PROT 5.5 g/dl (6.4-8.2)
[2022-04-04] MEDS ORDERED: GLYCERIN 1 RECTAL SUPPOSITORY, ADULT RC ONE (12:32)
[2022-04-04] MEDS: POLYETHYLENE GLYCOL (HEALTHYLAX) 3350 17 GM PACKET PO SCH (21:25)
[2022-04-05] MEDS: HEPARIN NA (PORCINE) 5,000 UNITS/ML 1ML VIAL SQ SCH ×4 (06:33→22:27)
[2022-04-05 07:49] LABS: BASO % 0.8 % (0-2.0); EOS % 9.6 % (0-4.5); HEMATOCRIT 24.7 % (32.4-45.2); HEMOGLOBIN 8.4 GM/dL (10.7-15.3); LYMPH % 22.2 % (8-40); MCH 28.8 pg (25.7-33.7); MEAN CELL VOLUME 84.7 fl (80-96); MEAN PLT VOLUME 6.5 fl (7.5-11.1); MONO % 13.7 % (3.8-10.2); NEUT % 53.7 % (42.8-82.8); PLATELET COUNT 384 10^3/uL (134-434); RBC 2.91 M/mm3 (3.60-5.2); RDW 14.9 % (11.6-15.6); WHITE BLOOD COUNT 4.2 K/mm3 (4.0-10.0)
[2022-04-05] MEDS: HYDROmorphone *PCA* 10MG/50ML DISP.SYRIN PCA SCH ×2 (08:00→23:25)
[2022-04-05 08:16] LABS: ALBUMIN 2.4 g/dl (3.4-5.0); BLOOD UREA NITROGEN 9.3 mg/dL (7-18); CALCIUM 8.2 mg/dL (8.5-10.1)
[2022-04-05 08:20] LABS: CREATININE 0.6 mg/dL (0.55-1.3); PHOSPHOROUS 3.2 mg/dL (2.5-4.9)
[2022-04-05 08:21] LABS: BILIRUBIN,TOTAL 0.3 mg/dL (0.2-1); TOT PROT 5.4 g/dl (6.4-8.2)
[2022-04-05] MEDS: FOLIC ACID 1 MG TABLET (FP) PO SCH (09:36)
[2022-04-05] MEDS: GABAPENTIN 300 MG CAPSULE PO SCH ×3 (09:36→22:28)
[2022-04-05] MEDS: PANTOPRAZOLE 40 MG TABLET PO SCH (09:36)
[2022-04-05] MEDS: FERROUS SO4 325 MG TABLET (FP) PO SCH (09:36)
[2022-04-05] MEDS: VENLAFAXINE HCL 75 MG E.R. CAPSULES PO SCH (09:37)
[2022-04-05] MEDS: POLYETHYLENE GLYCOL (HEALTHYLAX) 3350 17 GM PACKET PO SCH ×3 (09:37→22:27)
[2022-04-05] MEDS: ELETRIPTAN HYDROBROMIDE 40 MG TABLET PO PRN (11:42)
[2022-04-05] MEDS: ACETAMINOPHEN 500 MG TABLET (FP) PO PRN (20:49)
[2022-04-05] MEDS: DOCUSATE SODIUM 100 MG CAPSULE (FP) PO SCH ×2 (20:51→22:27)
[2022-04-06] MEDS: HEPARIN NA (PORCINE) 5,000 UNITS/ML 1ML VIAL SQ SCH ×3 (06:37→22:06)
[2022-04-06 07:41] LABS: HEMATOCRIT 27.5 % (32.4-45.2); HEMOGLOBIN 9.2 GM/dL (10.7-15.3); MCH 28.5 pg (25.7-33.7); MCHC 33.4 g/dl (32.0-36.0); MEAN CELL VOLUME 85.2 fl (80-96); MEAN PLT VOLUME 6.9 fl (7.5-11.1); PLATELET COUNT 433 10^3/uL (134-434); RBC 3.22 M/mm3 (3.60-5.2); RDW 14.5 % (11.6-15.6); WHITE BLOOD COUNT 4.4 K/mm3 (4.0-10.0)
[2022-04-06 07:48] LABS: ALBUMIN 2.5 g/dl (3.4-5.0); BLOOD UREA NITROGEN 8.4 mg/dL (7-18); CALCIUM 8.8 mg/dL (8.5-10.1); MAGNESIUM 2.1 mg/dL (1.8-2.4)
[2022-04-06 07:51] LABS: CREATININE 0.7 mg/dL (0.55-1.3); PHOSPHOROUS 4.2 mg/dL (2.5-4.9)
[2022-04-06 07:52] LABS: TOT PROT 5.9 g/dl (6.4-8.2)
[2022-04-06 07:54] LABS: BILIRUBIN,TOTAL 0.3 mg/dL (0.2-1)
[2022-04-06 08:39] LABS: ANISOCYTOSIS 3+; MACROCYTOSIS 0; PLATELET ESTIMATE INCREASED
[2022-04-06] MEDS: POLYETHYLENE GLYCOL (HEALTHYLAX) 3350 17 GM PACKET PO SCH ×2 (09:47→22:06)
[2022-04-06] MEDS: FOLIC ACID 1 MG TABLET (FP) PO SCH (09:47)
[2022-04-06] MEDS: GABAPENTIN 300 MG CAPSULE PO SCH ×2 (09:47→22:06)
[2022-04-06] MEDS: PANTOPRAZOLE 40 MG TABLET PO SCH (09:47)
[2022-04-06] MEDS: VENLAFAXINE HCL 75 MG E.R. CAPSULES PO SCH (09:47)
[2022-04-06] MEDS: FERROUS SO4 325 MG TABLET (FP) PO SCH (09:47)
[2022-04-06] MEDS: DOCUSATE SODIUM 100 MG CAPSULE (FP) PO SCH (22:06)
[2022-04-06] MEDS: HYDROmorphone *PCA* 10MG/50ML DISP.SYRIN PCA SCH (23:07)
[2022-04-07] MEDS: HEPARIN NA (PORCINE) 5,000 UNITS/ML 1ML VIAL SQ SCH ×3 (06:45→21:49)
[2022-04-07] MEDS: ELETRIPTAN HYDROBROMIDE 40 MG TABLET PO PRN (06:45)
[2022-04-07 07:50] LABS: HEMATOCRIT 28.6 % (32.4-45.2); HEMOGLOBIN 9.7 GM/dL (10.7-15.3); MCH 28.8 pg (25.7-33.7); MCHC 33.9 g/dl (32.0-36.0); MEAN CELL VOLUME 85.1 fl (80-96); MEAN PLT VOLUME 6.8 fl (7.5-11.1); PLATELET COUNT 476 10^3/uL (134-434); RBC 3.37 M/mm3 (3.60-5.2); RDW 14.3 % (11.6-15.6); WHITE BLOOD COUNT 4.8 K/mm3 (4.0-10.0)
[2022-04-07 08:12] LABS: ALBUMIN 2.8 g/dl (3.4-5.0); BLOOD UREA NITROGEN 8.7 mg/dL (7-18); MAGNESIUM 2.4 mg/dL (1.8-2.4)
[2022-04-07 08:15] LABS: CREATININE 0.6 mg/dL (0.55-1.3)
[2022-04-07 08:17] LABS: BILIRUBIN,TOTAL 0.4 mg/dL (0.2-1); TOT PROT 6.6 g/dl (6.4-8.2)
[2022-04-07 08:48] LABS: ANISOCYTOSIS 1+; MACROCYTOSIS 1+
[2022-04-07] MEDS: CEFAZOLIN 1 GM in DEXTROSE 5%-WATER - 50 ML IVPB SCH ×2 (10:00→18:31)
[2022-04-07] MEDS: FERROUS SO4 325 MG TABLET (FP) PO SCH (10:00)
[2022-04-07] MEDS: FOLIC ACID 1 MG TABLET (FP) PO SCH (10:00)
[2022-04-07] MEDS: GABAPENTIN 300 MG CAPSULE PO SCH ×2 (10:00→21:48)
[2022-04-07] MEDS: ONDANSETRON 4 MG/2 ML VIAL IVPUSH PRN (10:00)
[2022-04-07] MEDS: PANTOPRAZOLE 40 MG TABLET PO SCH (10:00)
[2022-04-07] MEDS: ACETAMINOPHEN 500 MG TABLET (FP) PO PRN ×2 (10:00→16:12)
[2022-04-07] MEDS: POLYETHYLENE GLYCOL (HEALTHYLAX) 3350 17 GM PACKET PO SCH ×2 (10:01→21:49)
[2022-04-07] MEDS: VENLAFAXINE HCL 75 MG E.R. CAPSULES PO SCH (10:17)
[2022-04-07] MEDS ORDERED: ELETRIPTAN HYDROBROMIDE 40 MG TABLET PO ONE (19:59)
[2022-04-07] MEDS: DOCUSATE SODIUM 100 MG CAPSULE (FP) PO SCH (21:48)
[2022-04-07] MEDS: HYDROmorphone *PCA* 10MG/50ML DISP.SYRIN PCA SCH (23:49)
[2022-04-08] MEDS: CEFAZOLIN 1 GM in DEXTROSE 5%-WATER - 50 ML IVPB SCH ×3 (01:10→17:44)
[2022-04-08] MEDS: HEPARIN NA (PORCINE) 5,000 UNITS/ML 1ML VIAL SQ SCH ×3 (05:54→21:08)
[2022-04-08 08:00] LABS: HEMATOCRIT 28.9 % (32.4-45.2); HEMOGLOBIN 9.7 GM/dL (10.7-15.3); MCH 28.4 pg (25.7-33.7); MCHC 33.8 g/dl (32.0-36.0); MEAN CELL VOLUME 84.2 fl (80-96); MEAN PLT VOLUME 6.9 fl (7.5-11.1); PLATELET COUNT 524 10^3/uL (134-434); RBC 3.43 M/mm3 (3.60-5.2); RDW 14.6 % (11.6-15.6); WHITE BLOOD COUNT 6.2 K/mm3 (4.0-10.0)
[2022-04-08 08:26] LABS: ALBUMIN 2.8 g/dl (3.4-5.0); CALCIUM 8.9 mg/dL (8.5-10.1)
[2022-04-08 08:27] LABS: MAGNESIUM 2.2 mg/dL (1.8-2.4); PHOSPHOROUS 3.7 mg/dL (2.5-4.9)
[2022-04-08 08:29] LABS: BILIRUBIN,TOTAL 0.2 mg/dL (0.2-1); CREATININE 0.7 mg/dL (0.55-1.3); TOT PROT 6.3 g/dl (6.4-8.2)
[2022-04-08 08:37] LABS: EPI CELLS 3 /uL (0-25.1); HYALINE CASTS 0 /uL (0-3.1); URINE APPEARANCE CLEAR; URINE BACTERIA 6 /uL (0-1359); URINE BILIRUBIN NEGATIVE (NEGATIVE); URINE COLOR YELLOW; URINE GLUCOSE (UA) NEGATIVE (NEGATIVE); URINE KETONE NEGATIVE (NEGATIVE); URINE LEUK ESTERASE 2+ (NEGATIVE); URINE NITRITE NEGATIVE (NEGATIVE); URINE PROTEIN NEGATIVE (NEGATIVE); URINE RBC 13 /uL (0-23.9); URINE UROBILINOGEN 0.2 mg/dL (0.2-1.0); URINE WBC 21 /uL (0-25.8)
[2022-04-08 09:24] LABS: ANISOCYTOSIS 0; MACROCYTOSIS 0
[2022-04-08 09:26] LABS: PLATELET ESTIMATE ADEQUATE
[2022-04-08] MEDS: VENLAFAXINE HCL 75 MG E.R. CAPSULES PO SCH (09:50)
[2022-04-08] MEDS: PANTOPRAZOLE 40 MG TABLET PO SCH (09:50)
[2022-04-08] MEDS: POLYETHYLENE GLYCOL (HEALTHYLAX) 3350 17 GM PACKET PO SCH ×2 (09:51→21:09)
[2022-04-08] MEDS: GABAPENTIN 300 MG CAPSULE PO SCH ×2 (09:51→21:08)
[2022-04-08] MEDS: FOLIC ACID 1 MG TABLET (FP) PO SCH (09:51)
[2022-04-08] MEDS: FERROUS SO4 325 MG TABLET (FP) PO SCH (09:51)
[2022-04-08] MEDS: oxyCODONE HCL 5 MG TABLET PO PRN (11:15)
[2022-04-08] MEDS: ACETAMINOPHEN 325 MG TABLET (FP) PO PRN (11:16)
[2022-04-08] MEDS: ACETAMINOPHEN 1000 MG/100 ML BAG IVPB PRN (17:25)
[2022-04-08] MEDS ORDERED: clonazePAM 0.5 MG TABLET PO PRN (17:48)
[2022-04-08] MEDS: HYDROmorphone HCl 2 MG/ML VIAL IVPB PRN ×2 (18:31→22:27)
[2022-04-08] MEDS: DOCUSATE SODIUM 100 MG CAPSULE (FP) PO SCH (21:10)
[2022-04-08] MEDS: ONDANSETRON 4 MG/2 ML VIAL IVPUSH PRN (21:35)
[2022-04-09] MEDS: CEFAZOLIN 1 GM in DEXTROSE 5%-WATER - 50 ML IVPB SCH ×2 (01:13→10:24)
[2022-04-09] MEDS: ACETAMINOPHEN 1000 MG/100 ML BAG IVPB PRN (04:42)
[2022-04-09] MEDS: HEPARIN NA (PORCINE) 5,000 UNITS/ML 1ML VIAL SQ SCH ×2 (05:57→14:41)
[2022-04-09] MEDS: HYDROmorphone HCl 2 MG/ML VIAL IVPB PRN (08:31)
[2022-04-09 09:23] LABS: HEMATOCRIT 31.8 % (32.4-45.2); HEMOGLOBIN 10.3 GM/dL (10.7-15.3); MCH 27.5 pg (25.7-33.7); MCHC 32.4 g/dl (32.0-36.0); MEAN CELL VOLUME 84.7 fl (80-96); PLATELET COUNT 516 10^3/uL (134-434); RBC 3.76 M/mm3 (3.60-5.2); RDW 14.7 % (11.6-15.6); WHITE BLOOD COUNT 7.2 K/mm3 (4.0-10.0)
[2022-04-09 09:43] LABS: MAGNESIUM 2.3 mg/dL (1.8-2.4)
[2022-04-09 09:44] LABS: BLOOD UREA NITROGEN 12.6 mg/dL (7-18)
[2022-04-09 09:46] LABS: CREATININE 0.8 mg/dL (0.55-1.3); PHOSPHOROUS 3.4 mg/dL (2.5-4.9)
[2022-04-09 09:48] LABS: BILIRUBIN,TOTAL 0.3 mg/dL (0.2-1); TOT PROT 6.6 g/dl (6.4-8.2)
[2022-04-09 10:07] LABS: ANISOCYTOSIS 0; MACROCYTOSIS 0
[2022-04-09 10:24] VITALS: PULSE 76
[2022-04-09] MEDS: FERROUS SO4 325 MG TABLET (FP) PO SCH ×2 (10:25→10:34)
[2022-04-09] MEDS: FOLIC ACID 1 MG TABLET (FP) PO SCH ×2 (10:25→10:34)
[2022-04-09] MEDS: VENLAFAXINE HCL 75 MG E.R. CAPSULES PO SCH ×2 (10:26→10:34)
[2022-04-09] MEDS: POLYETHYLENE GLYCOL (HEALTHYLAX) 3350 17 GM PACKET PO SCH ×2 (10:26→10:33)
[2022-04-09] MEDS: PANTOPRAZOLE 40 MG TABLET PO SCH ×2 (10:26→10:34)
[2022-04-09] MEDS: GABAPENTIN 300 MG CAPSULE PO SCH ×2 (10:26→10:34)
[2022-04-09] MEDS: oxyCODONE HCL 5 MG TABLET PO PRN (10:57)
[2022-04-09] MEDS: ACETAMINOPHEN 325 MG TABLET (FP) PO PRN (10:58)
[2022-04-09] MEDS: ONDANSETRON 4 MG/2 ML VIAL IVPUSH PRN (10:58)
[2022-04-09] MEDS ORDERED: oxyCODONE HCL 5 MG TABLET PO PRN ×2 (14:00)
[2022-04-09] MEDS ORDERED: HYDROmorphone HCl 2 MG/ML VIAL IVPB PRN (14:02)
[2022-04-09] MEDS ORDERED: ACETAMINOPHEN 1000 MG/100 ML BAG IVPB SCH (14:30)
[2022-04-09] MEDS ORDERED: ELETRIPTAN HYDROBROMIDE 40 MG TABLET PO ONE (15:00)
[2022-04-09 15:10] VITALS: BP 138/69; RESP 16; TEMP 98.2
[2022-04-09] MEDS ORDERED: GABAPENTIN 300 MG CAPSULE PO SCH (22:00)
== END 2022-04-09 18:17 | disposition home health service (06) | DRG 454 ==
LOC: JER 05:38 → UNDOADMOB 05:49 → INTOOBSV 05:49 → JERBED 05:49 → OBSVTOIN 09:34 → JERBED 09:34 → J8W 10:11 → J2C 12:23 → J4W 18:23
PROVIDERS: ADMIT Internal Medicine; ATTEND Internal Medicine
PROC: 0SG30AJ Fusion of Lumbosacral Joint with Interbody Fusion Device, Posterior Approach, Anterior Column, Open Approach (ICD-10-PCS; 2022-03-31)
PROC: 0RGA071 Fusion of Thoracolumbar Vertebral Joint with Autologous Tissue Substitute, Posterior Approach, Posterior Column, Open Approach (ICD-10-PCS; 2022-03-31)
PROC: 0SG1071 Fusion of 2 or more Lumbar Vertebral Joints with Autologous Tissue Substitute, Posterior Approach, Posterior Column, Open Approach (ICD-10-PCS; 2022-03-31)
PROC: 0SG3071 Fusion of Lumbosacral Joint with Autologous Tissue Substitute, Posterior Approach, Posterior Column, Open Approach (ICD-10-PCS; 2022-03-31)
PROC: 00QT0ZZ Repair Spinal Meninges, Open Approach (ICD-10-PCS; 2022-03-31)
PROC: 0SP30AZ Removal of Interbody Fusion Device from Lumbosacral Joint, Open Approach (ICD-10-PCS; 2022-03-31)
PROC: 0J970ZZ Drainage of Back Subcutaneous Tissue and Fascia, Open Approach (ICD-10-PCS; 2022-03-31)
PROC: 4A11X4G Monitoring of Peripheral Nervous Electrical Activity, Intraoperative, External Approach (ICD-10-PCS; 2022-03-31)
PROC: 0RG7071 Fusion of 2 to 7 Thoracic Vertebral Joints with Autologous Tissue Substitute, Posterior Approach, Posterior Column, Open Approach (ICD-10-PCS; principal; 2022-03-31 10:00)
PROC: [UNRECOGNIZED PROCEDURE] (2022-04-03)
PROC: 00QT0ZZ Repair Spinal Meninges, Open Approach (ICD-10-PCS; 2022-04-03)
PROC: 0J970ZZ Drainage of Back Subcutaneous Tissue and Fascia, Open Approach (ICD-10-PCS; 2022-04-03)
PROC: 4A11X4G Monitoring of Peripheral Nervous Electrical Activity, Intraoperative, External Approach (ICD-10-PCS; 2022-04-03)
DX: T84.038A Mechanical loosening of other internal prosthetic joint, initial encounter (principal); G97.41 Accidental puncture or laceration of dura during a procedure; M41.56 Other secondary scoliosis, lumbar region; M79.7 Fibromyalgia; G57.82 Other specified mononeuropathies of left lower limb; M47.894 Other spondylosis, thoracic region; M51.34 Other intervertebral disc degeneration, thoracic region; M47.816 Spondylosis without myelopathy or radiculopathy, lumbar region; M54.31 Sciatica, right side; M41.9 Scoliosis, unspecified; G43.909 Migraine, unspecified, not intractable, without status migrainosus; F41.8 Other specified anxiety disorders; M21.372 Foot drop, left foot; G96.198 Other disorders of meninges, not elsewhere classified; Y83.8 Other surgical procedures as the cause of abnormal reaction of the patient, or of later complication, without mention of misadventure at the time of the procedure; S30.0XXA Contusion of lower back and pelvis, initial encounter
CPT/HCPCS: 0241U-QW; 36415; 71045-TC-FY; 72128-TC; 72131-TC; 72146-TC; 72148-TC; 76000-TC-FY; 80053; 81003; 82962; 83735; 84100; 85025; 85610; 85730; 86850; 86900; 86901; 86922; 87040; 87086; 93005; 93010; 94010; 94760; 97116-GP; 97162-GP; 99285-25; C1713; C1889; J1644